=== PATIENT | female | born 1980 | race Caucasian/White ===

== ENCOUNTER 2018-01-26 20:39 | Emergency (ER) | payer OTHER ==
[~2018-01-26] VITALS: Ht 154.9 cm; Wt 63.5 kg
[~2018-01-26 20:39] MED LIST: MEDROLPACK PO; ZYRTEC10 MG PO
== END 2018-01-27 02:55 | disposition home or self-care (01) ==
LOC: ER 20:39
DX: J40 Bronchitis, not specified as acute or chronic (principal)